=== PATIENT | female | born 1980 ===

== ENCOUNTER 2017-01-29 06:53 | Emergency (ER) | payer SELFPAY ==
[2017-01-29 06:53] VITALS: BMI 34.0
[2017-01-29 07:13] VITALS: TEMP 97.9; O2SAT 99
--- NOTE | 2017-01-29 07:36 | ED PDOC ---
HPI: Abdomen Time Seen by Provider: 01/29/17 07:00 Chief Complaint (Nursing): Abdominal Pain Chief Complaint (Provider): RLQ pain History Per: Patient History/Exam Limitations: no limitations Onset/Duration Of Symptoms: Days Outside of [place] travel?: No Current Symptoms Are (Timing): Still Present Severity: Moderate Location Of Pain/Discomfort: RLQ, Suprapubic Quality Of Discomfort: "Pain" Associated Symptoms: Nausea. denies: Fever, Chills, Vomiting Additional History Per: Patient Additional Complaint(s): The pt is a 36yo female, PMHx of ovarian cysts and cyst rupture, uterine fibroids removal, presents to the ED for evaluation of right lower quadrant and suprapubic pain, present for the past 2 weeks. Pt reports she had a similar instance of pain when she first had her cysts rupture. She reports some associated nausea but denies any fever, chills, vomiting. Pt offers no additional medical complaints. Of note, pt had a termination of in 2006. Abnormal Vaginal Bleeding: No Past Medical History Reviewed: Historical Data, Nursing Documentation, Vital Signs Vital Signs: Last Vital Signs Temp 97.9 F 01/29/17 07:04 Pulse 78 01/29/17 11:03 Resp 16 01/29/17 11:03 BP 128/66 01/29/17 11:03 Pulse Ox 99 01/29/17 11:03 - Medical History PMH: No Chronic Diseases, Asthma (seasonal allergy/asthma) Denies: Chronic Kidney Disease - Surgical History Other surgeries: uterine fibroid removal - Family History Family History: States: Unknown Family Hx - Living Arrangements Living Arrangements: With Family - Social History Current smoker - smoking cessation education provided: No Alcohol: None Drugs: Denies - Immunization History Hx Tetanus Toxoid Vaccination: Yes (01/2015) Hx Influenza Vaccination: No Hx Pneumococcal Vaccination: No - Home Medications Home Medications: Ambulatory Orders Medication Instructions Recorded Bacitracin Ointment [Bacitracin] 30 gm TOP BID PRN #1 tube 08/03/15 Cephalexin [Keflex] 500 mg PO TID #24 cap 08/03/15 - Allergies Allergies/Adverse Reactions: Allergies Allergy/AdvReac Type Severity Reaction Status Date / Time No Known Allergies Allergy Verified 01/29/17 07:14 Review of Systems ROS Statement: Except As Marked, All Systems Reviewed And Found Negative Gastrointestinal: Positive for: Nausea, Abdominal Pain. Negative for: Vomiting Physical Exam - Reviewed Nursing Documentation Reviewed: Yes Vital Signs Reviewed: Yes - Physical Exam Appears: Positive for: Well, Non-toxic, No Acute Distress Head Exam: Positive for: ATRAUMATIC, NORMAL INSPECTION, NORMOCEPHALIC Skin: Positive for: Normal Color, Warm, DRY Eye Exam: Positive for: Normal appearance Neck: Positive for: Normal, Supple Cardiovascular/Chest: Positive for: Regular Rate, Rhythm Respiratory: Positive for: Normal Breath Sounds. Negative for: Respiratory Distress Gastrointestinal/Abdominal: Positive for: Soft, Tenderness (RLQ and suprapubic tenderness) Neurologic/Psych: Positive for: Alert, Oriented - Laboratory Results Result Diagrams: 01/29/17 08:10 01/29/17 08:10 - ECG O2 Sat by Pulse Oximetry: 99 (RA) Pulse Ox Interpretation: Normal Medical Decision Making Medical Decision Making: Time: 724 Impression: pelvic pain r sided R/o ruptured cyst Plan: -- CMP -- CBC -- Beta HCG -- Toradol 30 mg IV -- US Transvaginal -- Reassess Time: 905 Pt reports she is still in pain, will order Morphine 4 mg IV. Time: 1034 US Transvaginal IMPRESSION: 1. 3 mm cystic area anterior to the superior endometrium is nonspecific and could represent a small endometrial cyst, myometrial cyst, submucosal fibroid with cystic change or nonspecific postsurgical myometrial cystic change given history of myomectomy. 2. 2.0 cm presumable hemorrhagic cyst/corpus luteum cyst in the right ovary. 3. No evidence of fibroid uterus. Labs indicate low potassium levels, will order KCl 20 meq PO. Stable for d/c home after taking KCl. pt aware of US results and need for oupt follow up with buggy driver Pt to f/u with OBGYN. Scribe Attestation: Documented by Sloane Waterman acting as a scribe for Yazmin Dhillon MD. Provider Attestation: All medical record entries made by the Scribe were at my direction and personally dictated by me. I have reviewed the chart and agree that the record accurately reflects my personal performance of the history, physical exam, medical decision making, and the department course for this patient. I have also personally directed, reviewed, and agree with the discharge instructions and disposition. 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 Instructions: Ovarian Cyst (ED) Forms: [facility] ED School/Work Excuse
[2017-01-29 08:32] LABS: ALB/GLOB RATIO 1.5 (1.0-2.1); ALBUMIN 4.5 g/dL (3.5-5.0); ALT/SGPT 42 U/L (9-52); AST/SGOT 23 U/L (14-36); BLOOD UREA NITROGEN 11 mg/dl (7-17); CALCIUM 9.4 mg/dL (8.4-10.2); GFR AFRICAN-AMERICAN > 60; GFR NON-AFRICAN AMERICAN > 60; SQUAMOUS EPITHIAL 3 /hpf (0-5); URINE BACTERIA RARE (<OCC); URINE BILIRUBIN NEGATIVE (NEGATIVE); URINE BLOOD NEGATIVE (NEGATIVE); URINE CLARITY SLIGHTY-CLOUDY (Clear); URINE COLOR YELLOW (YELLOW); URINE GLUCOSE (UA) NEG (Normal); URINE LEUKOCYTE ESTERASE NEG Leu/uL (Negative); URINE NITRATE NEGATIVE (NEGATIVE); URINE PROTEIN NEGATIVE (NEGATIVE); URINE UROBILINOGEN 0.2-1.0 mg/dL (0.2-1.0)
[2017-01-29 08:37] LABS: BASO % 0.9 % (0.0-2.0); EOS # 0.1 K/uL (0.0-0.7); EOS % 2.3 % (0.0-4.0); LYMPH # 2.1 K/uL (1.0-4.3); LYMPH % 37.7 % (20.0-40.0); MEAN CELL VOLUME 91.6 fl (81.0-99.0); MEAN CORPUSCULAR HEMOGLOBIN 30.4 pg (27.0-31.0); MEAN CORPUSCULAR HGB CONC 33.2 g/dL (33.0-37.0); MEAN PLATELET VOLUME 7.2 fl (7.2-11.7); MONO # 0.6 K/uL (0.0-0.8); MONO % 10.1 % (0.0-10.0); NEUT # 2.7 K/uL (1.8-7.0); RBC 4.61 Mil/uL (3.80-5.20); RED CELL DISTRIBUTION WIDTH 12.8 % (11.5-14.5); WHITE BLOOD COUNT 5.5 K/uL (4.8-10.8)
--- NOTE | 2017-01-29 10:21 | US ---
HISTORY: History of ovarian cyst here with right adnexal pain. History of myomectomy more than 10 years ago. COMPARISON: None available. TECHNIQUE: Transvaginal pelvic ultrasound was performed. FINDINGS: UTERUS: Measures 7.0 x 4.4 x 3.6 cm. Anteverted, normal in size and appearance. No fibroid or other mass lesion seen. ENDOMETRIUM: Measures 8 mm in diameter. There is a 3 x 2 x 4 mm cystic area anterior to the superior endometrium. CERVIX: No cervical abnormality identified. RIGHT OVARY: Measures 3.1 x 4.0 x 2.2 cm. No solid mass. Normal flow. There is a 2.0 x 1.9 x 1.6 cm complex lesion with peripheral vascularity which likely represents a hemorrhagic or corpus luteum cyst. LEFT OVARY: Measures 2.2 x 2.3 x 1.6 cm. No solid mass. Normal flow. FREE FLUID: There is trace free fluid in the cul de sac, likely physiologic. OTHER FINDINGS: None. IMPRESSION: 1. 3 mm cystic area anterior to the superior endometrium is nonspecific and could represent a small endometrial cyst, myometrial cyst, submucosal fibroid with cystic change or nonspecific postsurgical myometrial cystic change given history of myomectomy. 2. 2.0 cm presumable hemorrhagic cyst/corpus luteum cyst in the right ovary. 3. No evidence of fibroid uterus.
[2017-01-29] MEDS ORDERED: Potassium Chloride 20 mEq ER Tab PO ONE ×2 (10:35→10:48)
[2017-01-29 11:04] VITALS: BP 128/66; PULSE 78; RESP 16
== END 2017-01-29 11:04 | disposition home or self-care (01) ==
LOC: H.ER 06:53
DX: N83.201 Unspecified ovarian cyst, right side (principal)
CPT/HCPCS: 76830; 80053; 81003; 81025; 84702; 85025; 87086; 96374; 96375; 99282; J1885; J2270

== ENCOUNTER 2018-03-18 08:28 | Emergency (ER) | payer BC ==
[2018-03-18 08:38] VITALS: BP 109/75; PULSE 79; O2SAT 97
[2018-03-18 08:39] VITALS: BMI 34.9
[2018-03-18] MEDS ORDERED: Sodium Chloride 0.9% 1,000 ML IV STA (09:00)
--- NOTE | 2018-03-18 09:04 | ED PDOC ---
HPI: Female Pain Time Seen by Provider: 03/18/18 08:34 Chief Complaint (Nursing): Abdominal Pain Chief Complaint (Provider): Pelvic pain History Per: Patient History/Exam Limitations: no limitations Onset/Duration Of Symptoms: Days (months) Additional Complaint(s): Pt. with R pelvic pain that she has had for a long time. Has ovarian cyst that she gets pain from when it ruptures. Sees Dr. Loving for it. No abd pain, back pain, nausea, vomit, diarrhea, weakness, headaches. No chest pain. No vaginal bleeding or dysuria. Past Medical History Reviewed: Nursing Documentation, Vital Signs Vital Signs: Last Vital Signs Temp 97.1 F L 03/18/18 08:38 Pulse 79 03/18/18 08:38 Resp BP 109/75 03/18/18 08:38 Pulse Ox 97 03/18/18 08:38 - Medical History PMH: Asthma (seasonal allergy/asthma) Denies: Chronic Kidney Disease Other PMH: ovarian cysts - Surgical History Surgical History: No Surg Hx - Family History Family History: States: Unknown Family Hx - Living Arrangements Living Arrangements: With Family - Immunization History Hx Tetanus Toxoid Vaccination: Yes (01/2015) Hx Influenza Vaccination: No Hx Pneumococcal Vaccination: No - Home Medications Home Medications: Ambulatory Orders Medication Instructions Recorded Bacitracin Ointment [Bacitracin] 30 gm TOP BID PRN #1 tube 08/03/15 Cephalexin [Keflex] 500 mg PO TID #24 cap 08/03/15 - Allergies Allergies/Adverse Reactions: Allergies Allergy/AdvReac Type Severity Reaction Status Date / Time No Known Allergies Allergy Verified 01/29/17 07:14 Review of Systems ROS Statement: Except As Marked, All Systems Reviewed And Found Negative Genitourinary Female: Positive for: Pelvic Pain Physical Exam - Reviewed Nursing Documentation Reviewed: Yes Vital Signs Reviewed: Yes - Physical Exam Appears: Positive for: Non-toxic, No Acute Distress Head Exam: Positive for: ATRAUMATIC, NORMAL INSPECTION, NORMOCEPHALIC Skin: Positive for: Normal Color, Warm, DRY Eye Exam: Positive for: EOMI, Normal appearance, PERRL ENT: Positive for: Normal ENT Inspection Neck: Positive for: Normal, Painless ROM Cardiovascular/Chest: Positive for: Regular Rate, Rhythm Respiratory: Positive for: CNT, Normal Breath Sounds Gastrointestinal/Abdominal: Positive for: Soft, Tenderness (R lower pelvic), Other (no abd pain tenderness in any quadrant) Back: Positive for: Normal Inspection. Negative for: L CVA Tenderness, R CVA Tenderness Extremity: Positive for: Normal ROM. Negative for: Tenderness, Pedal Edema Neurologic/Psych: Positive for: Alert, Oriented - Laboratory Results Result Diagrams: 03/18/18 09:11 03/18/18 09:11 Interpretation Of Abn Labs: no acute - ECG O2 Sat by Pulse Oximetry: 97 - Progress ED Course And Treament: 1123: No findings on US. Will Ct for further eval. 1451: Stable. AAOx3. Pain controlled. Dr. Washington to fu on ct. Medical Decision Making Medical Decision Making: Time: 1012 TRANSVAG US FINDINGS: UTERUS: Measures 6.9 x 4.4 x 3.3 cm. Anteverted, normal in size and appearance. No fibroid or other mass lesion seen. ENDOMETRIUM: Measures 9.0 mm in diameter. Normal in appearance. CERVIX: No cervical abnormality identified. RIGHT OVARY: Measures 4.2 x 2.1 x 1.8 cm. No solid mass. Normal flow. LEFT OVARY: Measures 2.5 x 2.7 x 1.9 cm. No solid mass. Normal flow. There is a 1.5 cm simple cyst. FREE FLUID: No significant free fluid noted. OTHER FINDINGS: None. IMPRESSION: Normal pelvic ultrasound. Disposition - Clinical Impression Clinical Impression: Abdominal pain - Patient ED Disposition Is Patient to be Admitted: No Counseled Patient/Family Regarding: Diagnosis - Disposition Disposition Time: 14:59 Condition: STABLE Patient Signed Over To: Ella Washington
[2018-03-18 09:43] LABS: BASO % 0.8 % (0.0-2.0); EOS # 0.1 K/uL (0.0-0.7); EOS % 1.8 % (0.0-4.0); HEMOGLOBIN 14.8 g/dL (12.0-16.0); LYMPH % 35.9 % (20.0-40.0); MEAN CELL VOLUME 89.6 fl (81.0-99.0); MEAN CORPUSCULAR HEMOGLOBIN 31.8 pg (27.0-31.0); MEAN CORPUSCULAR HGB CONC 35.5 g/dL (33.0-37.0); MEAN PLATELET VOLUME 7.3 fl (7.2-11.7); MONO # 0.5 K/uL (0.0-0.8); MONO % 8.6 % (0.0-10.0); NEUT # 2.9 K/uL (1.8-7.0); NEUT % 52.9 % (50.0-75.0); NRBC % 0.1 % (0.0-0.0); RBC 4.65 Mil/uL (3.80-5.20); RED CELL DISTRIBUTION WIDTH 12.6 % (11.5-14.5); WHITE BLOOD COUNT 5.5 K/uL (4.8-10.8)
[2018-03-18 09:50] LABS: BLOOD UREA NITROGEN 9 mg/dl (7-17); CALCIUM 9.7 mg/dL (8.4-10.2); GFR AFRICAN-AMERICAN > 60; GFR NON-AFRICAN AMERICAN > 60
[2018-03-18] MEDS ORDERED: Morphine 4 MG/ML VIAL ONE (10:12)
--- NOTE | 2018-03-18 10:13 | US ---
Date of service: 03/18/2018 HISTORY: vaginal bleeding COMPARISON: None available. TECHNIQUE: Transvaginal pelvic ultrasound was performed. FINDINGS: UTERUS: Measures 6.9 x 4.4 x 3.3 cm. Anteverted, normal in size and appearance. No fibroid or other mass lesion seen. ENDOMETRIUM: Measures 9.0 mm in diameter. Normal in appearance. CERVIX: No cervical abnormality identified. RIGHT OVARY: Measures 4.2 x 2.1 x 1.8 cm. No solid mass. Normal flow. LEFT OVARY: Measures 2.5 x 2.7 x 1.9 cm. No solid mass. Normal flow. There is a 1.5 cm simple cyst. FREE FLUID: No significant free fluid noted. OTHER FINDINGS: None. IMPRESSION: Normal pelvic ultrasound.
[2018-03-18] MEDS ORDERED: Iohexol 240 (50 ml) PO ONE (11:22)
[2018-03-18] MEDS ORDERED: Iohexol 240 (50 ml) ONE (12:05)
[2018-03-18] MEDS ORDERED: Sodium Chloride 0.9% 50 ML IV ONE (13:32)
[2018-03-18] MEDS ORDERED: Iohexol 300 100 ML IJ ONE (13:32)
--- NOTE | 2018-03-18 15:12 | ED PDOC ---
- Laboratory Results Result Diagrams: 03/18/18 09:11 03/18/18 09:11 - ECG O2 Sat by Pulse Oximetry: 97 (RA) Pulse Ox Interpretation: Normal - Progress Re-evaluation Time: 16:08 Condition: Re-examined, Improved Medical Decision Making Medical Decision Makin: Patient signed out to me by Dr. Gomez pending CT studies. 1542: CT Abdomen/Pelvis FINDINGS: LOWER THORAX: There is mild linear subsegmental atelectasis in the lingula and both lower lobes. LIVER: Mild hepatomegaly and diffuse fatty liver. No gross lesion or ductal dilatation. GALLBLADDER AND BILE DUCTS: No calcified gallstones. PANCREAS: Normal in size with homogeneous enhancement. No gross lesion or ductal dilatation. SPLEEN: Normal in size and appearance. ADRENALS: No discrete nodule. KIDNEYS AND URETERS: Normal in size with homogeneous enhancement. No hydronephrosis. No solid mass. VASCULATURE: No aortic aneurysm. BOWEL: The small bowel loops are normal in caliber. The colon is unremarkable. No bowel dilatation or obstruction. APPENDIX: Normal appendix. PERITONEUM: No free fluid. No free air. LYMPH NODES: There are prominent subcentimeter lymph nodes in the right lower quadrant. BLADDER: Well distended and normal in appearance. REPRODUCTIVE: The uterus is normal in size. BONES: No acute fracture. Within normal limits for the patient's age. OTHER FINDINGS: None. IMPRESSION: No acute abdominal or pelvic abnormality. Prominent subcentimeter lymph nodes in the right lower quadrant may represent nonspecific mesenteric adenitis. Mild hepatomegaly and fatty liver. Scribe Attestation: Documented by Sloane Waterman, acting as a scribe for Ella Washintgon MD. Provider Scribe Attestation: All medical record entries made by the Scribe were at my direction and personally dictated by me. I have reviewed the chart and agree that the record accurately reflects my personal performance of the history, physical exam, medical decision making, and the department course for this patient. I have also personally directed, reviewed, and agree with the discharge instructions and disposition. Disposition Doctor Will See Patient In The: Office Counseled Patient/Family Regarding: Studies Performed, Diagnosis, Need For Followup - Clinical Impression Clinical Impression: Abdominal pain, Mesenteric adenitis - POA Present On Arrival: None - Disposition Disposition: Routine/Home Disposition Time: 16:00 Condition: GOOD Additional Instructions: Take motrin for pain. Follow up with your PCp in 2-3 days. DARLENE MARIE, thank you for letting us take care of you today. Your provider was Ella Washington MD and you were treated for ABD PAIN. The emergency medical care you received today was directed at your acute symptoms. If you were prescribed any medication, please fill it and take as directed. It may take several days for your symptoms to resolve. Return to the Emergency Department if your symptoms worsen, do not improve, or if you have any other problems. Please contact your doctor or call one of the physicians/clinics you have been referred to that are listed on the Patient Visit Information form that is included in your discharge packet. Bring any paperwork you were given at discharge with you along with any medications you are taking to your follow up visit. Our treatment cannot replace ongoing medical care by a primary care provider outside of the emergency department. Thank you for allowing the [facility] team to be part of your care today. If you had an X-Ray or CT scan: A Radiologist will review the ED reading if any change in treatment is needed we will contact you. If you had a blood, urine, or wound culture: It will take several days for the results, if any change in treatment is needed we will contact you. If you had an STI test: It will take 48 hours for the results. Please call after 1 week if you have not heard back. Instructions: Mesenteric Lymphadenitis (DC)
--- NOTE | 2018-03-18 15:16 | CT ---
Date of service: 03/18/2018 PROCEDURE: CT Abdomen and Pelvis with contrast HISTORY: Abdominal pain COMPARISON: None. TECHNIQUE: CT scan of the abdomen and pelvis was performed after administration of intravenous contrast. Oral contrast was administered. Coronal and sagittal reformatted images were obtained. Contrast dose: 95 cc Omnipaque 300 Radiation dose: Total exam DLP = 766.27 mGy-cm. This CT exam was performed using one or more of the following dose reduction techniques: Automated exposure control, adjustment of the mA and/or kV according to patient size, and/or use of iterative reconstruction technique. FINDINGS: LOWER THORAX: There is mild linear subsegmental atelectasis in the lingula and both lower lobes. LIVER: Mild hepatomegaly and diffuse fatty liver. No gross lesion or ductal dilatation. GALLBLADDER AND BILE DUCTS: No calcified gallstones. PANCREAS: Normal in size with homogeneous enhancement. No gross lesion or ductal dilatation. SPLEEN: Normal in size and appearance. ADRENALS: No discrete nodule. KIDNEYS AND URETERS: Normal in size with homogeneous enhancement. No hydronephrosis. No solid mass. VASCULATURE: No aortic aneurysm. BOWEL: The small bowel loops are normal in caliber. The colon is unremarkable. No bowel dilatation or obstruction. APPENDIX: Normal appendix. PERITONEUM: No free fluid. No free air. LYMPH NODES: There are prominent subcentimeter lymph nodes in the right lower quadrant. BLADDER: Well distended and normal in appearance. REPRODUCTIVE: The uterus is normal in size. BONES: No acute fracture. Within normal limits for the patient's age. OTHER FINDINGS: None. IMPRESSION: No acute abdominal or pelvic abnormality. Prominent subcentimeter lymph nodes in the right lower quadrant may represent nonspecific mesenteric adenitis. Mild hepatomegaly and fatty liver.
[2018-03-18 16:41] VITALS: TEMP 98.2
== END 2018-03-18 16:30 | disposition home or self-care (01) ==
LOC: H.ER 08:28
DX: I88.0 Nonspecific mesenteric lymphadenitis (principal); N83.202 Unspecified ovarian cyst, left side; N93.9 Abnormal uterine and vaginal bleeding, unspecified
CPT/HCPCS: 74177; 76830; 80048; 81025; 85025; 96361; 96374; 96375; 99283; J1885; J2270; J2405; J7030; Q9966; Q9967

== ENCOUNTER 2018-05-24 07:55 | Emergency (ER) | payer BC ==
[2018-05-24 07:55] VITALS: BMI 34.9
[2018-05-24 08:01] VITALS: BP 121/79; RESP 18; TEMP 97.5; O2SAT 98
[2018-05-24] MEDS ORDERED: Naproxen 500 MG TAB PO STA (08:10)
--- NOTE | 2018-05-24 08:12 | ED PDOC ---
HPI: Female Pain Time Seen by Provider: 05/24/18 08:05 Chief Complaint (Nursing): Female Genitourinary History Per: Patient Onset/Duration Of Symptoms: Days (2) Current Symptoms Are (Timing): Still Present Severity: Moderate Quality Of Discomfort: Burning Associated Symptoms: Fever, Urinary Symptoms. denies: Nausea, Vomiting Additional Complaint(s): Dysuria and frequency assoc with right flank pain radiating to right inguinal area. Subjective fever. Denies NVD. Past Medical History Vital Signs: Last Vital Signs Temp 97.5 F L 05/24/18 08:01 Pulse 93 H 05/24/18 08:01 Resp 18 05/24/18 08:01 BP 121/79 05/24/18 08:01 Pulse Ox 98 05/24/18 08:01 - Medical History PMH: Asthma (seasonal allergy/asthma) Denies: Chronic Kidney Disease Other PMH: UTI - Family History Family History: States: Unknown Family Hx - Immunization History Hx Tetanus Toxoid Vaccination: Yes (01/2015) Hx Influenza Vaccination: No Hx Pneumococcal Vaccination: No - Home Medications Home Medications: Ambulatory Orders Medication Instructions Recorded Bacitracin Ointment [Bacitracin] 30 gm TOP BID PRN #1 tube 08/03/15 Cephalexin [Keflex] 500 mg PO TID #24 cap 08/03/15 Ibuprofen [Motrin] 600 mg PO TID PRN #20 tab 03/18/18 Naproxen [Naprosyn] 500 mg PO Q12H #20 tab 05/24/18 Sulfamethoxazole/Trimethoprim 1 tab PO BID #20 tab 05/24/18 [Bactrim DS 800 mg-160 mg] - Allergies Allergies/Adverse Reactions: Allergies Allergy/AdvReac Type Severity Reaction Status Date / Time pollen extracts Allergy RASH Verified 05/24/18 08:09 Review of Systems ROS Statement: Except As Marked, All Systems Reviewed And Found Negative Constitutional: Positive for: Fever Gastrointestinal: Positive for: Abdominal Pain. Negative for: Nausea, Vomiting, Diarrhea Genitourinary Female: Positive for: Dysuria, Frequency Musculoskeletal: Positive for: Back Pain Physical Exam - Reviewed Nursing Documentation Reviewed: Yes Vital Signs Reviewed: Yes - Physical Exam Appears: Positive for: Non-toxic, No Acute Distress Head Exam: Positive for: ATRAUMATIC, NORMAL INSPECTION, NORMOCEPHALIC Skin: Positive for: Normal Color, Warm, DRY Cardiovascular/Chest: Positive for: Regular Rate, Rhythm Respiratory: Positive for: CNT, Normal Breath Sounds Gastrointestinal/Abdominal: Positive for: Soft. Negative for: Tenderness Back: Positive for: Normal Inspection. Negative for: L CVA Tenderness, R CVA Tenderness Extremity: Positive for: Normal ROM Neurologic/Psych: Positive for: Alert, Oriented - ECG O2 Sat by Pulse Oximetry: 98 Disposition - Clinical Impression Clinical Impression: Urinary tract infection - Patient ED Disposition Is Patient to be Admitted: No Counseled Patient/Family Regarding: Studies Performed, Diagnosis, Need For Followup, Rx Given - Disposition Referrals: [facility] [Outside] Disposition: Routine/Home Disposition Time: 09:00 Condition: FAIR Prescriptions: Naproxen [Naprosyn] 500 mg PO Q12H #20 tab Sulfamethoxazole/Trimethoprim [Bactrim DS 800 mg-160 mg] 1 tab PO BID #20 tab Instructions: Urinary Tract Infections in Adults Forms: [facility] ([place]ak[place])
[2018-05-24] MEDS ORDERED: Naproxen 500 MG TAB PO ONE (08:21)
[2018-05-24 08:39] LABS: SQUAMOUS EPITHIAL 1 /hpf (0-5); URINE BILIRUBIN NEGATIVE (NEGATIVE); URINE BLOOD NEGATIVE (NEGATIVE); URINE CLARITY CLEAR (Clear); URINE COLOR YELLOW (YELLOW); URINE GLUCOSE (UA) NEG (Normal); URINE LEUKOCYTE ESTERASE NEG Leu/uL (Negative); URINE PROTEIN NEGATIVE (NEGATIVE); URINE UROBILINOGEN 0.2-1.0 mg/dL (0.2-1.0)
[2018-05-24 09:24] VITALS: PULSE 84
== END 2018-05-24 09:50 | disposition home or self-care (01) ==
LOC: H.ER 07:55
DX: N39.0 Urinary tract infection, site not specified (principal)

== ENCOUNTER 2018-11-09 12:44 | Inpatient (IN) | payer BC ==
[2018-11-09] MEDS ORDERED: Lactated Ringer's 1,000 ML IV ONE ×2 (13:39→17:00)
[2018-11-09 13:46] VITALS: BMI 39.9
[2018-11-09 13:53] LABS: BASO # 0.2 K/uL (0.0-0.2); BASO % 2.9 % (0.0-2.0); EOS # 0.2 K/uL (0.0-0.7); EOS % 4.2 % (0.0-4.0); HEMOGLOBIN 14.3 g/dL (12.0-16.0); LYMPH # 1.9 K/uL (1.0-4.3); MEAN CELL VOLUME 91.8 fl (81.0-99.0); MEAN CORPUSCULAR HEMOGLOBIN 30.2 pg (27.0-31.0); MEAN CORPUSCULAR HGB CONC 32.9 g/dL (33.0-37.0); MEAN PLATELET VOLUME 7.4 fl (7.2-11.7); MONO # 0.4 K/uL (0.0-0.8); NEUT # 3.3 K/uL (1.8-7.0); NEUT % 54.9 % (50.0-75.0); NRBC % 0.1 % (0.0-0.0); RBC 4.73 Mil/uL (3.80-5.20); RED CELL DISTRIBUTION WIDTH 12.8 % (11.5-14.5)
[2018-11-09] MEDS ORDERED: Bupivacaine 0.5% Inj(30mL) ONE (17:15)
[2018-11-09] MEDS ORDERED: Propofol 10 mg/ml Inj (20 ML) ONE (17:25)
[2018-11-09] MEDS ORDERED: Midazolam 2 MG/2 ML VIAL ONE (17:25)
[2018-11-09] MEDS ORDERED: Succinylcholine Chloride 20 mg/ml Syr (5 ml) IV ONE (17:26)
[2018-11-09] MEDS ORDERED: Rocuronium 10 mg/ml (5 ml) ONE ×2 (17:26→18:48)
[2018-11-09] MEDS ORDERED: Dexamethasone 4 mg/1 ml ONE (17:26)
[2018-11-09] MEDS ORDERED: Sevoflurane - Inhalation Anesthetic Liq (250 ml) ONE (17:27)
[2018-11-09] MEDS ORDERED: Bupivacaine 0.5% 50 ML IJ ONE ×2 (18:43)
[2018-11-09] MEDS ORDERED: Neostigmine 1:1000 (1 mg/ml) Inj ONE (19:43)
[2018-11-09] MEDS ORDERED: Lactated Ringer's 1,000 ML IV SCH (20:00)
[2018-11-09] MEDS ORDERED: HYDROmorphone 0.5 mg/0.5 ml ISec ONE ×4 (20:10→21:00)
[2018-11-09] MEDS: HYDROmorphone 0.5 mg/0.5 ml ISec IVP PRN ×4 (20:11→21:00)
[2018-11-09] MEDS ORDERED: Oxycodone/Acetaminophen 5/325 mg Tab PO PRN ×2 (22:49→22:50)
[2018-11-09 23:14] VITALS: RESP 20
[2018-11-10 01:19] VITALS: O2SAT 97
--- NOTE | 2018-11-10 06:18 | HP ---
HISTORY OF PRESENT ILLNESS: A 38-year-old, G2, P0-0-2-0, last menstrual period 11/02/2018, reports that she has right lower quadrant pain constantly, feels like she is getting her period. She reports that Motrin does not work, so she is always in pain. Patient reports that she has tried oral contraceptive pills and Depo Provera and nothing has given her pain relief. The patients reports that she has pain in the right lower quadrant with intercourse and is not having sex due to the pain. The patient has been seen by Dr. Stearns for endometriosis and is being scheduled for robotic endometriosis excision today. PAST MEDICAL HISTORY: History of anxiety, endometriosis, oral herpes, and fatty liver. PAST SURGICAL HISTORY: Laparoscopic "removed spider webs w/ a laser", endometriosis removal? records not available, per patient in 2004. MEDICATIONS: Alprazolam 0.25 mg 1/2 tab as needed, Flonase ALLERGIES: NO KNOWN ALLERGIES. FAMILY HISTORY: Father alive with diabetes and hypertension and maternal grandmother , of bone cancer, had cervical cancer. Maternal aunt, alive and had history of cervical cancer. SOCIAL HISTORY: The patient denies smoking and denies alcohol use and illicit drug use. GYNECOLOGICAL HISTORY: The patient gets a period every month. In May 2017, pap was ASCUS with positive HPV. In December 2017, colposcopy was done. Normal pap in 07/2018. The patient denies any STDs. The patient had elective termination, had heavy bleeding after procedure, needed a second procedure in 2001 and then she also had an elective termination with no complications in 2006. PHYSICAL EXAMINATION: VITAL SIGNS: Afebrile. Stable. GENERAL: The patient appears comfortable. ABDOMEN: Soft, nontender. EXTREMITIES: Nontender. No edema. IMAGING: On 01/15/2018, she had transvaginal ultrasound revealing normal uterus, no evidence of fibroid, small follicular cysts in both ovaries, no adnexal mass or free fluid. ASSESSMENT AND PLAN: This is a 38-year-old G2, P0-0-2-0, with chronic right lower quadrant pain and dyspareunia. Patient is scheduled for a robotic excision of endometriosis by Dr. Stearns today. The patient had a bowel prep yesterday. Natalie Padilla MD [facility] # [id number] [place]
[2018-11-10 08:12] VITALS: BP 126/76; PULSE 91; TEMP 97.5
--- NOTE | 2018-11-14 01:54 | OP ---
PROCEDURE DATE: 11/09/2018 PREOPERATIVE DIAGNOSES: This is a 38-year-old G2 P 0-0-2-0 with chronic right lower quadrant pain that is constant and a long history of dyspareunia. History of pelvic endometriosis. History of previously failed medical and surgical therapy. POSTOPERATIVE DIAGNOSES: Areas around both pelvic ureters and a small area by the rectum were suspicious for mild endometriosis. A bulbous uterus was noted, likely consistent with adenomyosis. PROCEDURE: Exam under anesthesia. Cystoscopy, bilateral ureteral catheterization and injection of IC-Green dye. Robotic Da Debo operative laparoscopy, excision of endometriosis with bilateral ureterolyis and excision of small area by the rectum. SURGEON: Natalie Padilla MD CONSULTANTS DURING THE PROCEDURE: Dr. Aly Stearns was consulted for assistance with cystoscopy, placement of stents, and injection of IC-Green dye. He was also consulted during the case for the Robotic Da Debo operative laparoscopy, specifically bilateral periureteral excision of endometriosis. Dr. Bo Vee was consulted for the area of perirectal endometriosis. TYPE OF ANESTHESIA: General endotracheal tube anesthesia. ANESTHESIOLOGIST: Zach Hu MD COMPLICATIONS: None. SAMPLES SENT: Left perirectal endometriosis, right periureteral endometriosis, and left periureteral endometriosis. FINDINGS: Normal external genitalia. Cervix without lesions and polyps. Cystoscopy revealed a normal-appearing bladder mucosa with no evidence of stone or cystitis and the ureters appeared to be in their normal anatomical position. There were areas suspicious for mild endometriosis, specifically on the left rectum and bilaterally around the pelvic ureters. The uterus appeared bulbous, likely consistent with adenomyosis, and the tubes and ovaries appeared normal. DESCRIPTION OF PROCEDURE: After adequate anesthesia was obtained, the patient was placed in the dorsal lithotomy position and prepped and draped in the usual sterile fashion. The surgeon was gowned and gloved. The time-out was taken according to the hospital procedure and the procedure was started. Initially, we performed a cystoscopy and bilateral ureteral catheterization. The cystoscope was inserted into the bladder under direct visualization and the bladder was visualized. The bladder was free of lesions and tumors. Both ureters were identified and appeared to be in the normal anatomical position. Utilizing an open 5-Luxembourger open-ended catheter, the left ureter was catheterized all the way to the distal ureter and 5 mL of IC-Green was injected into the ureter. Similarly, the contralateral ureter was catheterized all the way to the distal ureter and 5 mL of IC-Green was injected into the distal ureter. At this point, the stents were removed and the cystoscope was removed, and a 16-Luxembourger Grimes was inserted into the bladder. A speculum was placed into the vagina and the anterior lip of the cervix was grasped. The cervix was dilated and an [place] Three uterine manipulator was placed into the uterus. At this point, we proceeded with placement of the trocars and docking of the Da Debo Xi robot. An open laparoscopy was performed by making an incision in the umbilicus and the fascia was incised. The peritoneum was entered in a blunt fashion and the cannula was inserted under direct visualization. The abdomen was insufflated; and under direct visualization, three additional ports were inserted; the first one was placed about 22 cm from the umbilicus on the right side, the second one was placed about 22 cm on the left side and an accessory port was placed in the right upper quadrant. All the ports were placed in a similar fashion, after the infusion of Marcaine, and under direct visualization. The patient was placed in Trendelenburg. At this point, the Da Debo Xi robot was brought into the field and docked and the instruments were inserted under direct visualization. The instruments were the PK dissector and the scissors. All this was done with extreme care not to injure the bowel or another area. At this point, the peritoneum of the left perirectal area that was suspicious for endometriosis was opened, excised and sent to pathology. Following this, the peritoneum in the area of the right pelvic ureter was opened, excised and sent to pathology, and then following this, the peritoneum in the area of the left pelvic ureter was excised, dissected and sent for pathology. The ureters were identified utilizing florescent technology. At this point, the areas of dissection were checked for hemostasis and appeared to be excellent. At this point, the Da Debo Xi robot was removed, the abdomen was desufflated and the fascial incision of the umbilical incision was closed with 0-PDS and the skin incisions were closed w/ subcuticular stitches of 4-0 Monocryl. At the end of the procedure, all sponge, lap, and needle and instrument counts were correct. The patient tolerated the procedure well and was taken to the recovery room in excellent condition. Natalie Padilla MD [facility]
== END 2018-11-10 11:53 | disposition home or self-care (01) | DRG 743 ==
LOC: H.OPSURG 12:44 → H.PEDS 22:36 → H.OPSURG 22:56 → H.PEDS 22:56
PROVIDERS: ADMIT Obstetrics & Gynecology; ATTEND Obstetrics & Gynecology
PROC: 0T788DZ Dilation of Bilateral Ureters with Intraluminal Device, Via Natural or Artificial Opening Endoscopic (ICD-10-PCS; 2018-11-09)
PROC: 8E0W4CZ Robotic Assisted Procedure of Trunk Region, Percutaneous Endoscopic Approach (ICD-10-PCS; 2018-11-09)
PROC: 0UB94ZZ Excision of Uterus, Percutaneous Endoscopic Approach (ICD-10-PCS; principal; 2018-11-09 16:00)
PROC: 0DBW4ZZ Excision of Peritoneum, Percutaneous Endoscopic Approach (ICD-10-PCS; 2018-11-09 16:00)
DX: N80.0 Endometriosis of uterus (principal); N80.5 Endometriosis of intestine; N80.3 Endometriosis of pelvic peritoneum; N80.8 Other endometriosis; N94.19 Other specified dyspareunia